=== PATIENT | female | born 1980 | race Caucasian/White ===

== ENCOUNTER 2016-11-15 22:52 | Emergency (ER) | payer BC ==
[~2016-11-15] VITALS: Ht 154.9 cm; Wt 93.2 kg
[~2016-11-15 22:52] MED LIST: ALDACTONE 100M100 MG PO; ANTIVERT 25MG25 MG PO; ARMOUR THYROID15 MG PO; ARMOUR THYROID60 MG PO; CELEXA20 MG PO; CLOMID50 MG PO; DESYREL DIVIDO150 M1 PO; FISH OIL500 MG; FLEXERIL 1010 MG/TAB PO; GLUCOPHAGE1000 MG PO; INDERAL40 MG PO; MACROBID 1100 MG/CAP PO; METFORMIN1000 MG PO; MOTRIN 600600 MG/TAB PO; NAPROSYN500 MG PO; NORCO 325 MG-51 TAB PO; NOVOLOG 100U100 U/M1 SQ; PERCOCET 325 MG1 TA2 PO; PRENATAL1 TA1 PO; PROMETRIUM200 MG VG; SEPTRA DS 8001 TAB PO; SLOW FE45 MG PO; TYLENOL 325MG325 MG; ULTRAM 50MG TAB50 MG PO; ZOFRAN 4MG T4 MG/TAB PO; [UNRECOGNIZED DRUG - CODE]
[2016-11-15 22:54] VITALS: TEMP 97.7
[2016-11-15] MEDS ORDERED: CORTEF5 MG PO (22:59)
[2016-11-15 23:36] LABS: BASO % 0.2 % (0.0-2.0); EOS # 0.1 (0.0-0.7); EOS % 0.5 % (0-4.0); GRAN # 13.7 (1.4-6.5); GRAN % 81.3 % (42.2-75.2); HEMATOCRIT 39.6 % (37.0-47.0); HEMOGLOBIN 13.4 g/dl (12.5-16.0); LYMPH # 1.9 (1.2-3.4); LYMPH % 11.5 % (20.0-51.0); MEAN CELL VOLUME 83 fl (80.0-100.0); MEAN CORPUSCULAR HEMOGLOBIN 28 pg (27.0-31.0); MEAN CORPUSCULAR HGB CONC 34 g/dl (33.0-37.0); MONO % 6.1 % (1.7-9.3); PLATELET COUNT 317 K/mm3 (130-400); RED BLOOD COUNT 4.78 M/mm3 (4.10-5.30); REDCELL DISTRIBUTION WIDTH-CV 13.1 % (11.5-14.5); WHITE BLOOD COUNT 16.8 K/mm3 (4.8-10.8)
[2016-11-15 23:49] LABS: ADJUSTED CALCIUM 9.8 mg/dL (8.4-10.2); ALBUMIN 4.1 gm/dL (3.5-5.0); BILIRUBIN,TOTAL 0.7 mg/dL (0.0-1.0); CALCIUM 9.9 mg/dL (8.4-10.2); CREATININE, serum 0.62 mg/dL (0.52-1.25); MAGNESIUM 1.8 mg/dL (1.6-2.3); PHOSPHOROUS 4.4 mg/dL (2.5-4.5); POTASSIUM 4.3 mmol/L (3.4-5.0); TOTAL PROTEIN 7.8 gm/dL (6.4-8.2)
[2016-11-16 00:03] LABS: PH 5 (5-8); SQUAMOUS EPITHELIAL 0-2 /hpf; URINE APPEARANCE Clear; URINE BACTERIA Rare /hpf; URINE BILIRUBIN Negative (NEGATIVE); URINE BLOOD Negative (NEGATIVE); URINE COLOR Yellow; URINE GLUCOSE Negative (NEGATIVE); URINE KETONE Negative (NEGATIVE); URINE RBC 0-2 /hpf; URINE UROBILINOGEN Negative (NEGATIVE); URINE WBC 0-2 /hpf
[2016-11-16 00:46] VITALS: BP 129/81; PULSE 93
== END 2016-11-16 00:57 | disposition home or self-care (01) ==
LOC: COL.ER 22:52
PROVIDERS: Emergency Medicine
DX: E23.0 Hypopituitarism (principal); E27.40 Unspecified adrenocortical insufficiency
CPT/HCPCS: J1720; J2405; J7030